=== PATIENT | male | born 1980 | race Caucasian/White ===

== ENCOUNTER 2020-07-26 21:05 | Emergency (ER) | payer SELFPAY ==
[~2020-07-26] VITALS: Ht 177.8 cm; Wt 105.9 kg
[2020-07-26] MEDS ORDERED: SODIUM CHLORIDE FLUSH 10ML SYR IVF ONE (21:30)
[2020-07-26] MEDS ORDERED: ONDANSETRON 2MG/ML, 2ML IVPush ONE (21:30)
[2020-07-26] MEDS ORDERED: SODIUM CHLORIDE 0.9% 1,000ML IVBOLUS ONE (21:30)
[2020-07-26] MEDS ORDERED: MORPHINE SULFATE 4 MG/ML, 1ML IVPush PRN (21:30)
[2020-07-26] MEDS ORDERED: PANTOPRAZOLE 40 MG IV IVPush ONE (21:30)
[2020-07-26] MEDS ORDERED: ONDANSETRON 2MG/ML, 2ML ONE (21:34)
[2020-07-26] MEDS ORDERED: MORPHINE SULFATE 4 MG/ML, 1ML ONE (21:34)
[2020-07-26] MEDS ORDERED: PANTOPRAZOLE 40 MG IV ONE (21:49)
--- NOTE | 2020-07-26 21:58 | NUR ---
Assist RN: IV established; medicated patient per mar.
--- NOTE | 2020-07-26 22:04 | NUR ---
PT C/O OF ABDOMINAL DULL PAIN AND BLOODY STOOL FOR LAST COUPLE OF HOURS. DENIES N/V/D, CP, SOB.
[2020-07-26 22:05] LABS: BASOPHILS % (AUTO) 1 % (0-1); EOSINOPHILS % (AUTO) 5 % (1-7); LYMPHOCYTES % (AUTO) 33 % (22-44); MEAN CORPUSCULAR HEMOGLOBIN 32.4 pg (27.5-34.5); MEAN PLATELET VOLUME 6.7 fL (7.4-10.4); MONOCYTES % (AUTO) 7 % (2-9); NEUTROPHILS % (AUTO) 56 % (42-75); PLATELET COUNT 318 x10^3/uL (130-400); RED BLOOD COUNT 4.72 x10^6/uL (4.38-5.82); RED CELL DISTRIBUTION WIDTH 14.7 % (9.4-14.8)
[2020-07-26 22:08] LABS: MD NO
[2020-07-26 22:15] LABS: ALANINE AMINOTRANSFERASE 53 U/L (12-78); ANION GAP 5 mmol/L (5-15); CALCIUM 8.9 mg/dL (8.5-10.1); CHLORIDE 109 mmol/L (98-107)
[2020-07-26 22:17] LABS: ALKALINE PHOSPHATASE 73 U/L (45-117); BILIRUBIN,TOTAL 0.4 mg/dL (0.2-1.0); TOTAL PROTEIN 7.9 g/dL (6.4-8.2)
[2020-07-26 22:32] LABS: INTERNATIONAL NORMALIZED RATIO 0.98 (0.93-1.1); PROTHROMBIN TIME 10.5 Seconds (9.6-11.5)
--- NOTE | 2020-07-26 22:57 | NUR ---
Report from GOLD Iglesias. Pt appears comfortable, says he is having some pain again. VSS. Waiting for ERP re-evaluation. Pt /friend in room smells heavy of etoh.
[2020-07-26] MEDS ORDERED: OMNIPAQUE 350 MG/ML, 100ML BOTTLE ONE (23:45)
--- NOTE | 2020-07-27 00:18 | NUR ---
Anoscope set up done, pt informed and agrees with plan. Pt asking for more pain medication however appears comfortable, defer to ER MD.
--- NOTE | 2020-07-27 00:27 | NUR ---
Chaperoned Dr Titus for anoscope exam. Pt IV then dc, cath intact. To be dc. Pt verbalizes understanding of instruct, rx and f/u. To return to ER if worse or concerns.
[2020-07-27 00:34] VITALS: BP 135/78
== END 2020-07-27 00:36 | disposition home or self-care (01) ==
LOC: ED 22:32
DX: K64.8 Other hemorrhoids (principal); R10.84 Generalized abdominal pain; K92.1 Melena; F17.210 Nicotine dependence, cigarettes, uncomplicated
CPT/HCPCS: 36415; 74177; 80053; 80320; 83690; 85025; 85610; 85730; 86850; 86900; 96361; 96374; 96375; 99285; 99406; C9113; J2270; J2405; J7030; Q9967; G0480